=== PATIENT | male | born 1960 | race Hispanic/Latino ===

== ENCOUNTER 2017-02-04 09:21 | Outpatient (CLI) | payer OTHER ==
[2017-02-04] MEDS ORDERED: PROVENTIL IH ONE (09:50)
== END 2017-02-04 09:22 | disposition home or self-care (01) ==
LOC: PF 09:21
PROVIDERS: ATTEND Internal Medicine
DX: I48.91 Unspecified atrial fibrillation (principal); E11.9 Type 2 diabetes mellitus without complications; E03.9 Hypothyroidism, unspecified; M19.90 Unspecified osteoarthritis, unspecified site; K21.9 Gastro-esophageal reflux disease without esophagitis; E66.9 Obesity, unspecified; M48.00 Spinal stenosis, site unspecified; J43.9 Emphysema, unspecified
CPT/HCPCS: 94729